=== PATIENT | female | born 1960 | race Caucasian/White ===

== ENCOUNTER 2019-03-18 14:00 | Inpatient (IN) | payer BC, MEDICARE ==
[2019-03-18 15:16] VITALS: BMI 39.9
[2019-03-30] MEDS ORDERED: Fentanyl 100 MCG/2 ML VIAL ONE ×2 (10:38→14:48)
[2019-03-30] MEDS ORDERED: Heparin 5,000 UNITS/ML VIAL ONE (10:47)
[2019-03-30] MEDS ORDERED: Bupivacaine/Epinephrine 0.25% 30 ML VIAL ONE (10:58)
[2019-03-30] MEDS ORDERED: Midazolam HCl 2 mg/2 ml Vial ONE (11:05)
[2019-03-30] MEDS ORDERED: Promethazine HCl 25 MG/ML VIAL IM PRN ×3 (14:10→15:43)
[2019-03-30] MEDS ORDERED: hydrALAZINE 20 MG/ML VIAL SLOW IVP PRN (14:10)
[2019-03-30] MEDS ORDERED: Hydrocodone-Acetamin 15 ML UDCUP PO PRN ×2 (14:10→15:51)
[2019-03-30] MEDS ORDERED: Dextrose 5% in Water 1,000 ML IV PRN (14:10)
[2019-03-30] MEDS ORDERED: Dextrose 50% Abboject 50 ML SYRINGE SLOW IVP PRN (14:10)
[2019-03-30] MEDS ORDERED: diphenhydrAMINE 50 MG/ML VIAL IVP PRN ×2 (14:10→15:43)
[2019-03-30] MEDS ORDERED: Ondansetron PF 4 MG/2 ML Vial IVP PRN (14:10)
[2019-03-30] MEDS ORDERED: Hydrocortisone Sod Succ/PF 250 mg/2 ml Vial SLOW IVP SCH ×2 (14:30→22:00)
[2019-03-30] MEDS ORDERED: Promethazine HCl 25 MG/ML VIAL ONE (15:03)
[2019-03-30] MEDS ORDERED: Naloxone HCl 0.4 mg/ml Vial IV PRN (15:43)
[2019-03-30] MEDS ORDERED: Ondansetron HCl/PF 4 MG/2 ML Vial IVP PRN (15:43)
[2019-03-30] MEDS ORDERED: Promethazine HCl 25 MG/ML VIAL SLOW IVP PRN (15:43)
[2019-03-30] MEDS ORDERED: Zolpidem Tartrate 5 MG TAB PO PRN (15:43)
[2019-03-30] MEDS ORDERED: diphenhydrAMINE 25 MG CAP PO PRN (15:43)
[2019-03-30] MEDS ORDERED: fentaNYL Citrate/PF 2,000 MCG in Sodium Chloride 0.9% 60 ML IV PRN (15:43)
[2019-03-30] MEDS ORDERED: diphenhydrAMINE 50 MG/ML VIAL IM PRN (15:43)
[2019-03-30] MEDS ORDERED: Communication Order-Pharmacy FS SCH (15:45)
[2019-03-30] MEDS ORDERED: Rocuronium Bromide 10 MG/ML (10ML VIAL) ONE (16:34)
[2019-03-30] MEDS ORDERED: Hydrocortisone Sod Succ/PF 100 mg/2 ml Vial ONE (16:34)
[2019-03-30] MEDS ORDERED: PROPOFOL 200 MG/20 ML VIAL ONE (16:34)
[2019-03-30] MEDS ORDERED: Ondansetron PF 4 MG/2 ML Vial ONE (16:34)
[2019-03-30] MEDS ORDERED: Glycopyrrolate 0.2 MG/ML 5 ML SYRINGE ONE (16:34)
[2019-03-30] MEDS ORDERED: Lidocaine 1% PF 5 ML VIAL ONE (16:34)
[2019-03-30] MEDS ORDERED: Ketorolac Tromethamine 30 MG/ML VIAL ONE (16:34)
--- NOTE | 2019-03-30 16:51 | PDOC.GSOPN ---
General Surgery Procedure Note - Operative Note Date: 03/30/19 Time: 12:30 Pre-op diagnosis: morbid obesity Post-op diagnosis: same Procedure: gene en y gastric bypass Surgeon: Douglas Desir Jr Pathology: none sent Condition: stable - Description of Procedure Details: Laparoscopic gene en y gastric bypass surgery performed. No complications during surgery.
[2019-03-30] MEDS: CEFAZOLIN 2 GM in Premix Bag 1 BAG IVPB SCH (19:53)
[2019-03-30] MEDS: 1/2 NS w/KCL 20 mEq 1,000 ML IV SCH ×2 (20:07→21:20)
[2019-03-30] MEDS: Ondansetron PF 4 MG/2 ML Vial IVP PRN (21:23)
[2019-03-31] MEDS: CEFAZOLIN 2 GM in Premix Bag 1 BAG IVPB SCH (03:29)
[2019-03-31] MEDS: Ondansetron PF 4 MG/2 ML Vial IVP PRN (03:31)
[2019-03-31 05:32] LABS: #Lymphocytes 0.9 thou/uL (1.20-3.40); #Monocytes 0.7 thou/uL (0.11-0.59); #Neutrophils 7.5 thou/uL (1.40-6.50); %Basophils 0.1 % (0.0-1.0); %Eosinophils 0.3 % (0.0-10.0); %Lymphocytes 9.6 % (21.0-51.0); %Monocytes 7.2 % (0.0-10.0); %Neutrophils 82.9 % (42.0-75.0); Hemoglobin 10.5 g/dL (12.0-16.0); Mean Corpuscular HGB CONC 32.6 g/dL (32.0-36.0); Mean Corpuscular Hemoglobin 32.9 pg (27.0-31.0); Mean Platelet Volume 9.5 fL (7.4-10.4); Platelet Count 132 thou/uL (130-400); Red Blood Cell (RBC) Count 3.19 mill/uL (4.20-5.40); White Blood Cell (WBC) Count 9.1 thou/uL (4.8-10.8)
[2019-03-31 05:53] LABS: Anion Gap 9 mmol/L (10-20); BUN (Urea Nitrogen) 24 mg/dL (9.8-20.1); Calc. Creatinine Clearance 152 mL/min (70-130); Calcium 7.4 mg/dL (7.8-10.44); Carbon Dioxide 22 mmol/L (22-29); Chloride 109 mmol/L (98-107); Estimated GFR-MDRD 85; Glucose 155 mg/dL (70-105); Potassium 4.2 mmol/L (3.5-5.1); Sodium 136 mmol/L (136-145)
[2019-03-31] MEDS: Hydrocortisone Sod Succ/PF 100 mg/2 ml Vial IVP SCH ×3 (05:55→21:12)
--- NOTE | 2019-03-31 08:15 | OP ---
DATE OF PROCEDURE: 03/30/2019 PREOPERATIVE DIAGNOSIS: Morbid obesity. PROCEDURE PERFORMED: Laparoscopic Juan Daniel-en-Y gastric bypass with esophagogastroscopy. INDICATIONS: The patient is a 58-year-old female, morbidly obese, who has attempted multiple weight loss programs without success. She has a lot of reflux and biopsy-proven reflux esophagitis. FINDINGS: A 100-cm Juan Daniel limb was used, 50 cm biliopancreatic limb. DESCRIPTION OF PROCEDURE: After informed consent was obtained, the patient was taken to the operating room and given general endotracheal anesthesia. She was placed in supine position. Abdomen was prepped and draped in the usual fashion. Local anesthesia infiltrated subcutaneously and deep. A 12-mm incision was performed approximately 8 inches below the xiphoid slightly to the left. A Veress needle was inserted. Drop test was performed. Pneumoperitoneum was created to a volume of 2 L of carbon dioxide. Utilizing a bladeless 12-mm trocar and 0-degree laparoscope, direct visual entry into the abdominal cavity was performed. Pneumoperitoneum was created to a pressure of 15 mmHg. Under direct vision, two 12-mm ports were placed on the right and one on the left. The omentum was lifted up to find the ligament of Treitz. Once the ligament of Treitz was identified, 50 cm of small bowel was measured off. Then, a transverse division of this jejunum was performed utilizing the linear 60-mm white load stapler. Then, the distal limb was measured of 100 cm and a [id number] functional end-to-end anastomosis was performed. The two bowel limbs were approximated with a 2-0 silk suture. Then, enterotomies were performed on the antimesenteric borders. Linear 60-mm white load stapler was inserted, one limb in each limb of bowel closed, held for 20 seconds and fired. Then, the common enterotomy was closed with a 2-0 V-Loc, tied intracorporeally transversely. Then, the potential hernia space of Escoot was closed with a pursestring of 2-0 silk suture. Then, the omentum was split utilizing the LigaSure from the central portion to the colon. The patient then placed in the steep reverse Trendelenburg position. A Candida liver retractor inserted. Left lobe of liver retracted superiorly. On the lesser curve distal to the left gastric artery, a transverse incision was performed after the mesentery was opened using blunt and sharp dissection. This was done with a linear 60 mm blue load stapler. Then, the gastric pouch was further defined superiorly toward the angle of His with a series of 60-mm blue load staplers. Once this was divided, the Juan Daniel limb was found and antimesenteric enterotomy was performed approximately 10 cm from the staple line on the antimesenteric border. A gastrotomy was also performed in the gastric pouch. This was done by cauterizing the surface with the electrocautery and further opened it using a [place] dissector and a grasper. The linear 60-mm blue load stapler was used to create the anastomosis. One limb of the stapler was inserted within the jejunum. This was then carried up to the gastric pouch and the other limb was inserted in the gastric pouch. This was closed, held for 20 seconds, and then fired. The common gastroenterotomy was closed transversely with a 2-0 V-Loc PDS suture. Then, intraoperative endoscopy was performed. The videoendoscope inserted under direct vision and advanced into the gastric pouch and into the Juan Daniel limb. The Juan Daniel limb was clamped with a noncrushing Meghan clamp and this allowed insufflation of the staple lines with air under pressure. There was no evidence of bubbles or air leak. The stomach and Juan Daniel limb were decompressed and the scope removed. Hemostasis was assured. The trocars were serially removed and inspected. There was no hemorrhage. The skin closed with interrupted 4-0 Rapide. Dermabond applied. The patient tolerated the procedure well, transferred to Recovery in good condition. Sponge and needle count verified correct x2. Job ID: [id number]
[2019-03-31] MEDS ORDERED: Enoxaparin Sodium 40 MG/0.4 ML SYRINGE SC SCH (09:00)
[2019-03-31] MEDS: Pantoprazole 40 MG VIAL IVP SCH (10:21)
--- NOTE | 2019-03-31 11:22 | PRG ---
DATE OF SERVICE: 03/31/2019 SUBJECTIVE: The patient is little lightheaded. She had a dark bloody bowel movement. OBJECTIVE: VITAL SIGNS: Her temperature is 99.1, pulse 91, blood pressure 109/68. GENERAL: She is a little lethargic, but in no significant distress. ABDOMEN: Soft, obese. She has some ecchymosis around the incisions, especially left upper quadrant, which is the one that bothers her the most. No active bleeding. LABORATORY DATA: Her white count is 9.1, H and H 10 and 32, platelet count 132. ASSESSMENT: Staple line bleeding. PLAN: Hold Lovenox. Serial H and H. Job ID: [id number]
[2019-03-31] MEDS ORDERED: GASTROGRAFIN 30 ML BOT ONE (11:46)
[2019-03-31 12:15] LABS: Hemoglobin 10.4 g/dL (12.0-16.0)
[2019-03-31] MEDS ORDERED: Morphine 2 MG/ML SYRINGE SLOW IVP PRN (14:49)
[2019-03-31] MEDS: 1/2 NS w/KCL 20 mEq 1,000 ML IV SCH ×3 (15:01→21:14)
--- NOTE | 2019-03-31 18:49 | RAD ---
EXAM: Single contrast upper GI HISTORY: Status post gastric bypass/vertical sleeve COMPARISON: None EXPOSURE: 0.8 minutes of fluoroscopic time FINDINGS: No leakage of contrast from the esophagus or stomach is seen. During the examination, contr ast failed to pass out of the stomach. A 2 1/2 hour delayed image shows contrast within the right colon. A small amount of residual contrast is seen in the stomach. IMPRESSION: Status post surgical changes of the stomach without evidence of leak.
[2019-04-01 04:47] LABS: #Lymphocytes 2.1 thou/uL (1.20-3.40); #Monocytes 0.7 thou/uL (0.11-0.59); #Neutrophils 8.1 thou/uL (1.40-6.50); %Basophils 0.3 % (0.0-1.0); %Eosinophils 0.3 % (0.0-10.0); %Monocytes 6.6 % (0.0-10.0); %Neutrophils 73.8 % (42.0-75.0); Hemoglobin 9.2 g/dL (12.0-16.0); Mean Corpuscular HGB CONC 33.7 g/dL (32.0-36.0); Mean Corpuscular Hemoglobin 33.7 pg (27.0-31.0); Mean Platelet Volume 9.1 fL (7.4-10.4); Platelet Count 144 thou/uL (130-400); RBC Distribution Width 16.4 % (11.5-14.5); Red Blood Cell (RBC) Count 2.73 mill/uL (4.20-5.40); White Blood Cell (WBC) Count 10.9 thou/uL (4.8-10.8)
[2019-04-01] MEDS: Hydrocortisone Sod Succ/PF 100 mg/2 ml Vial IVP SCH ×3 (05:16→21:55)
[2019-04-01] MEDS: 1/2 NS w/KCL 20 mEq 1,000 ML IV SCH ×3 (05:17→21:56)
[2019-04-01] MEDS: Pantoprazole 40 MG VIAL IVP SCH (09:00)
--- NOTE | 2019-04-01 11:04 | PRG ---
DATE OF SERVICE: 04/01/2019 SUBJECTIVE: The patient states she is feeling better than she did yesterday. She is tolerating quite a bit of liquids, not quite enough to go home, but almost. She said the soup made her a little nauseated. She is passing gas, but she had another dark bloody bowel movement. OBJECTIVE: VITAL SIGNS: Temperature is 98.7, pulse 69, blood pressure 137/76. GENERAL: She looks okay. She is in no apparent distress. The incisions are healing well. There is no evidence of infection. LABORATORY DATA: Her hemoglobin and hematocrit went from 10.4 to 9.2 and 27. ASSESSMENT: Status post gastric bypass with some staple line bleeding that seems to be getting better. PLAN: Continue liquids. We will follow hemoglobin and hematocrit. Job ID: [id number]
[2019-04-01 12:41] LABS: Hemoglobin 8.7 g/dL (12.0-16.0)
[2019-04-01] MEDS: Ondansetron PF 4 MG/2 ML Vial IVP PRN ×2 (15:24→22:19)
[2019-04-01 18:20] LABS: Hemoglobin 8.7 g/dL (12.0-16.0)
[2019-04-01] MEDS ORDERED: Topiramate 100 MG TAB PO SCH (21:00)
[2019-04-01] MEDS ORDERED: TRAZODONE 100 MG PO SCH (21:00)
[2019-04-01] MEDS ORDERED: LAMICTAL 150 MG PO SCH (21:00)
[2019-04-01] MEDS ORDERED: lamoTRIgine 100 MG TAB PO SCH (21:00)
[2019-04-01] MEDS: Topiramate 100 MG TAB PO SCH (21:53)
[2019-04-02 04:36] VITALS: BP 117/54; TEMP 99.3
[2019-04-02 05:29] LABS: #Lymphocytes 1.6 thou/uL (1.20-3.40); #Monocytes 0.5 thou/uL (0.11-0.59); #Neutrophils 5.7 thou/uL (1.40-6.50); %Basophils 0.1 % (0.0-1.0); %Eosinophils 0.3 % (0.0-10.0); %Monocytes 6.5 % (0.0-10.0); Hemoglobin 7.9 g/dL (12.0-16.0); Mean Corpuscular HGB CONC 33.1 g/dL (32.0-36.0); Mean Corpuscular Hemoglobin 33.6 pg (27.0-31.0); Mean Platelet Volume 9.1 fL (7.4-10.4); Platelet Count 117 thou/uL (130-400); Platelet Morphology Comment Appears Decreased; RBC Distribution Width 16.2 % (11.5-14.5); Red Blood Cell (RBC) Count 2.35 mill/uL (4.20-5.40); White Blood Cell (WBC) Count 7.9 thou/uL (4.8-10.8)
[2019-04-02] MEDS: Hydrocortisone Sod Succ/PF 100 mg/2 ml Vial IVP SCH ×3 (05:42→14:39)
[2019-04-02] MEDS: 1/2 NS w/KCL 20 mEq 1,000 ML IV SCH ×2 (07:26→14:39)
[2019-04-02] MEDS: Pantoprazole 40 MG VIAL IVP SCH (08:56)
[2019-04-02] MEDS: Topiramate 100 MG TAB PO SCH (09:05)
[2019-04-02] MEDS ORDERED: LAMICTAL 150 MG PO SCH ×2 (10:00→21:00)
--- NOTE | 2019-04-02 12:01 | PQF ---
CLINICAL DOCUMENTATION IMPROVEMENT CLARIFICATION FORM: ICD-10 Updated PLEASE DO AN ADDENDUM TO THE PROGRESS NOTE WITH ANY DOCUMENTATION UPDATES OR ADDITIONS AND CARRY THROUGH TO DC SUMMARY. THANK YOU. DATE: 04/02/19 ATTN: DR. WEST Please exercise your independent, professional judgment in responding to the clarification form. Clinical indicators are provided on the bottom of this form for your review Please check appropriate box(s): [ ] Acute blood loss anemia [ ] Post-op anemia related to acute blood loss [ ] Anemia: [ ] Aplastic [ ] Nutritional [ ] Drug induced (specify) ___ [ ] Hemolytic [ ] Hereditary [ ] Acquired [ ] Autoimmune [ ] Non-autoimmune [ ] Enzyme disorder [ ] Chronic Anemia: [ ] Blood loss [ ] Hemolytic [ ] Simple [ ] Due to Vitamin B12 Deficiency [ ] Other [ ] Anemia of Chronic Disease (please specify) [ ] Anemia due to Neoplasm: [ ] Primary [ ] Secondary [ ] Anemia due to (please choose): [ ] Due to Chemotherapy [ ] Due to Radiotherapy [ ] Due to Immunotherapy [ ] Other diagnosis [ ] Unable to determine In addition, please specify: Present on Admission (POA): [ ] Yes [ ] No [ ] Unable to determine For continuity of documentation, please document condition throughout progress notes and discharge summary. Thank You. CLINICAL INDICATORS - SIGNS / SYMPTOMS / LABS PROGRESS NOTE 03/31: "THE PATIENT IS A LITTLE LIGHTHEADED. SHE HAD A DARK BLOODY BOWEL MOVEMENT." "ASSESSMENT: STAPLE LINE BLEEDING" WBC 03/31: 10.5 WBC 04/02: 7.9 RISKS: GASTRIC BYPASS SURGERY (03/30) TREATMENT: SERIAL LABS 2 UNITS PACKED CELLS (ORDERED 04/02) (This form is maintained as a part of the permanent medical record) 2014 [employer]. All Rights Reserved [email or web address] Office: [phone] [email or web address]
[2019-04-02 13:23] LABS: Hemoglobin 8.1 g/dL (12.0-16.0)
[2019-04-02] MEDS ORDERED: DIVALPROEX 125 MG PO SCH (21:00)
== END 2019-04-02 15:22 | disposition home or self-care (01) | DRG 620 ==
LOC: SURG A 03-30 09:53
PROVIDERS: ADMIT Surgery; ATTEND Surgery
PROC: 0D164ZA Bypass Stomach to Jejunum, Percutaneous Endoscopic Approach (ICD-10-PCS; principal; 2019-03-30)
PROC: 0DJ08ZZ Inspection of Upper Intestinal Tract, Via Natural or Artificial Opening Endoscopic (ICD-10-PCS; 2019-03-30)
DX: E66.01 Morbid (severe) obesity due to excess calories (principal); E27.40 Unspecified adrenocortical insufficiency; K44.9 Diaphragmatic hernia without obstruction or gangrene; E03.9 Hypothyroidism, unspecified; E78.00 Pure hypercholesterolemia, unspecified; M79.7 Fibromyalgia; K90.0 Celiac disease; J45.909 Unspecified asthma, uncomplicated; G43.909 Migraine, unspecified, not intractable, without status migrainosus; F31.9 Bipolar disorder, unspecified; M19.90 Unspecified osteoarthritis, unspecified site; E78.5 Hyperlipidemia, unspecified; M35.00 Sjogren syndrome, unspecified; K21.9 Gastro-esophageal reflux disease without esophagitis; I25.10 Atherosclerotic heart disease of native coronary artery without angina pectoris; Z68.39 Body mass index [BMI] 39.0-39.9, adult; Z90.49 Acquired absence of other specified parts of digestive tract; Z90.710 Acquired absence of both cervix and uterus; Z88.1 Allergy status to other antibiotic agents; Z88.8 Allergy status to other drugs, medicaments and biological substances
CPT/HCPCS: 36415; 74241; 80048; 85025; 86850; 86900; 86901; 94760; C9113; J0131; J0690; J1644; J1650; J1720; J1885; J2001; J2250; J2270; J2405; J2550; J2704; J3010; J3480; J3490; Q9963

== ENCOUNTER 2019-03-18 14:09 | Outpatient (CLI) | payer BC, MEDICARE ==
--- NOTE | 2019-03-18 15:38 | RAD ---
XR Chest Pa Lat STANDARD HISTORY: Preop evaluation COMPARISON: 01/15/2019 FINDINGS: The heart size is normal. The lungs are well expanded without focal areas of consolidation, pneumothorax or pleural effusions. IMPRESSION: No radiographic evidence of acute cardiopulmonary process.
[2019-03-18 15:53] LABS: #Eosinphils 0.1 thou/uL (0.0-0.7); #Lymphocytes 1.7 thou/uL (1.20-3.40); #Monocytes 1.1 thou/uL (0.11-0.59); #Neutrophils 7.6 thou/uL (1.40-6.50); %Basophils 0.3 % (0.0-1.0); %Eosinophils 1.2 % (0.0-10.0); %Lymphocytes 16.4 % (21.0-51.0); %Monocytes 10.2 % (0.0-10.0); %Neutrophils 71.9 % (42.0-75.0); Hemoglobin 15.2 g/dL (12.0-16.0); Mean Corpuscular HGB CONC 33.4 g/dL (32.0-36.0); Mean Corpuscular Hemoglobin 32.6 pg (27.0-31.0); Mean Corpuscular Volume 97.4 fL (78.0-98.0); Mean Platelet Volume 8.8 fL (7.4-10.4); Platelet Count 163 thou/uL (130-400); RBC Distribution Width 16.8 % (11.5-14.5); Red Blood Cell (RBC) Count 4.67 mill/uL (4.20-5.40); White Blood Cell (WBC) Count 10.6 thou/uL (4.8-10.8)
[2019-03-18 15:59] LABS: Hemoglobin A1c 5.1 % (4.0-6.0)
[2019-03-18 16:15] LABS: ALT (SGPT) 15 U/L (8-55); AST (SGOT) 12 U/L (5-34); Albumin 4.5 g/dL (3.5-5.0); Alkaline Phosphatase 62 U/L (40-150); Anion Gap 17 mmol/L (10-20); BUN (Urea Nitrogen) 15 mg/dL (9.8-20.1); Bilirubin, Direct 0.2 mg/dL (0.1-0.3); Bilirubin, Total 0.3 mg/dL (0.2-1.2); Calc. Creatinine Clearance 0 mL/min (70-130); Calcium 9.8 mg/dL (7.8-10.44); Carbon Dioxide 22 mmol/L (22-29); Chloride 107 mmol/L (98-107); Estimated GFR-MDRD 63; Globulin 2.1 g/dL (2.4-3.5); Glucose 93 mg/dL (70-105); Potassium 3.7 mmol/L (3.5-5.1); Protein, Total 6.6 g/dL (6.0-8.3); Sodium 142 mmol/L (136-145)
== END 2019-03-18 14:10 | disposition home or self-care (01) ==
LOC: LABBT 14:09
PROVIDERS: ATTEND Surgery
DX: Z01.818 Encounter for other preprocedural examination (principal); E66.01 Morbid (severe) obesity due to excess calories
CPT/HCPCS: 71046; 80053; 80076; 83036; 85025; 93005; 93010